=== PATIENT | female | born 1950 | race Caucasian/White ===

== ENCOUNTER 2018-06-27 08:33 | Inpatient (IN) | payer MEDICARE ==
[~2018-06-27] VITALS: Ht 170.2 cm; Wt 94.5 kg
[2018-06-27] VITALS (37 sets, daily range): BP systolic 86–130; BP diastolic 54–106
--- NOTE | 2018-06-27 08:35 | NUR ---
PT CLIFF Stephenson from [facility] for AMS and low BP, PT IS AAOX0 BUT WITHDRAWS TO PAIN, NOTEP LOW BP OF 71/51, HOOKED TO PESTICIDE APPLICATOR, KEPT RESTED AND COMFORTABLE, WILL CONTINUE TO MONITOR.
--- NOTE | 2018-06-27 08:45 | NUR ---
IV LINE ESTABLISHED, LABS DRAWNED AND SENT TO LAB.
--- NOTE | 2018-06-27 08:50 | NUR ---
GOLD LEAF LAYER AT BEDSIDE FOR XRAY.
[2018-06-27 08:53] LABS: BASOPHILS # (AUTO) 0.1 /CMM (0.0-0.2); BASOPHILS % (AUTO) 0.4 % (0.0-2.0); HEMATOCRIT 32 % (33-45); HEMOGLOBIN 10.5 g/dL (11.5-14.8); LYMPHOCYTES # (AUTO) 0.5 /CMM (0.8-4.8); LYMPHOCYTES % (AUTO) 2.4 % (20.0-44.0); MEAN CORPUSCULAR HGB CONC 33 g/dl (31.0-36.0); MEAN CORPUSCULAR VOLUME 95 fL (82-100); MONOCYTES # (AUTO) 0.8 /CMM (0.1-1.30); MONOCYTES % (AUTO) 4.3 % (2.0-12.0); NEUTROPHILS # (AUTO) 17.5 /CMM (1.8-8.9); NEUTROPHILS % (AUTO) 92.9 % (43.0-81.0); PLATELET COUNT (AUTO) 284 /CMM (150-450); RED BLOOD CELL COUNT(AUTO) 3.32 MIL/uL (4.0-5.2); WHITE BLOOD COUNT (AUTO) 18.8 K/uL (4.3-11.0)
--- NOTE | 2018-06-27 08:55 | NUR ---
URINE SPECIMEN COLLECTED VIA STRAIGHT CATH AND SENT TO LAB.
[2018-06-27 09:00] LABS: APPEARANCE,URINE Turbid (CLEAR); BILIRUBIN,URINE Negative (NEGATIVE); BLOOD, URINE Moderate Ery/uL (NEGATIVE); COLOR,URINE Yellow (YELLOW); KETONES,URINE Negative (NEGATIVE); LEUKOCYTE ESTERASE ,URINE Large (NEGATIVE); NITRITE, URINE Negative (NEGATIVE); PH,URINE 8.5 (5.0-8.0); PROTEIN,URINE >=300 mg/dl (NEGATIVE); UGLUCOSE Negative (NEGATIVE); UROBILINOGEN,URINE 0.2 EU/dL (0.2)
[2018-06-27] MEDS ORDERED: IV NS 0.9% 1,000 ML BAG IV ONE ×2 (09:00→12:00)
--- NOTE | 2018-06-27 09:00 | NUR ---
30CC PER KG IV NS ONGOING VERBAL ORDERED BY DR. ORTIZ.
[2018-06-27 09:01] LABS: CALCIUM, SERUM 8.8 mg/dL (8.5-10.1); CARBON DIOXIDE 23 mmol/L (21-32); CHLORIDE 101 mmol/L (98-107); CREATININE 2.9 mg/dL (0.6-1.3); GLUCOSE 158 mg/dL (74-106); POTASSIUM 4.2 mmol/L (3.5-5.1); SODIUM SERUM 130 mmol/L (136-145); UREA NITROGEN, BLOOD 48 mg/dL (7-18)
[2018-06-27] MEDS ORDERED: ESCI10TA PO (09:06)
[2018-06-27] MEDS ORDERED: DOCU-141 PO (09:06)
[2018-06-27] MEDS ORDERED: ACET-2605 PO (09:06)
[2018-06-27] MEDS ORDERED: INTE30SY IM (09:06)
[2018-06-27] MEDS ORDERED: ACET-868 PO (09:06)
[2018-06-27] MEDS ORDERED: [UNRECOGNIZED DRUG - CODE] IV (09:06)
[2018-06-27] MEDS ORDERED: LEVO250P3 IV (09:06)
[2018-06-27] MEDS ORDERED: BACL10TA PO (09:06)
[2018-06-27 09:07] LABS: ALANINE AMINOTRANSFERASE 12 U/L (12-78); ALBUMIN 1.8 g/dL (3.4-5.0); ALKALINE PHOSPHATASE 82 U/L (46-116); ASPARTATE AMINOTRANSFERASE 21 U/L (15-37); BILIRUBIN,DIRECT 0.1 mg/dL (0.0-0.2); BILIRUBIN,TOTAL 0.3 mg/dL (0.2-1.0); TOTAL PROTEIN, SERUM 6.3 g/dL (6.4-8.2)
[2018-06-27] MEDS ORDERED: BISA10SU8 RC (09:07)
[2018-06-27] MEDS ORDERED: SORB30SO2 PO (09:07)
[2018-06-27] MEDS ORDERED: MAGN400O6 PO (09:07)
[2018-06-27] MEDS ORDERED: CLOP75TA15 PO (09:07)
[2018-06-27] MEDS ORDERED: SENN-168 PO (09:07)
[2018-06-27] MEDS ORDERED: NORT10CA PO (09:07)
[2018-06-27] MEDS ORDERED: FAMO20TA8 PO (09:07)
[2018-06-27] MEDS ORDERED: AMIN30LI27 PO (09:07)
[2018-06-27] MEDS ORDERED: AMLO5TAB4 PO (09:07)
[2018-06-27] MEDS ORDERED: LISI40TA4 PO (09:07)
[2018-06-27] MEDS ORDERED: GABA-534 PO (09:07)
[2018-06-27] MEDS ORDERED: MAGN400T26 PO (09:07)
[2018-06-27] MEDS ORDERED: NA P133E RC (09:07)
[2018-06-27 09:09] LABS: BACTERIA,URINE Few /HPF (None Seen); SQUAMOUS EPITHELIAL CELL,UR Few /HPF (None Seen); WBC,URINE 20-50 /HPF (0-3)
[2018-06-27 09:10] LABS: URINE AMORPHOUS PHOSPHATES Moderate /HPF (None Seen)
--- NOTE | 2018-06-27 09:38 | NUR ---
DR. ELOISE YING ON-CALL. AWAITING FOR CALL BACK.
--- NOTE | 2018-06-27 09:55 | NUR ---
BED 117-1 SINDHU
[2018-06-27] MEDS ORDERED: VANCOMYCIN 1 GM in IV D5W 250 ML IV ONE (10:00)
[2018-06-27] MEDS ORDERED: CEFEPIME 1 GM VIAL IV ONE (10:00)
[2018-06-27] MEDS ORDERED: ACETAMINOPHEN 325 MG TABLET PO PRN (10:30)
[2018-06-27] MEDS ORDERED: DEXTROSE IV SCH (10:30)
[2018-06-27] MEDS ORDERED: NA PHOS,M-B/NA PHOS,DI-BA 1 EA ENEMA RC PRN (10:30)
[2018-06-27] MEDS ORDERED: MAG HYDROX/AL HYDROX/SIMETH 30 ML UDC PO PRN (10:30)
[2018-06-27] MEDS ORDERED: CEFEPIME 2 GM in IV D5W 100 ML IV ONE (10:30)
[2018-06-27] MEDS ORDERED: ONDANSETRON HCL/PF 4 MG/2 ML VIAL IVP PRN (10:30)
[2018-06-27] MEDS ORDERED: BISACODYL SUPP (10 MG) 10 MG/SUPP.RECT SUPP.RECT RC PRN (10:30)
[2018-06-27] MEDS ORDERED: [UNRECOGNIZED DRUG - OTHER] IV SCH (10:30)
[2018-06-27] MEDS ORDERED: MAGNESIUM HYDROXIDE 30 ML UDC PO PRN ×2 (10:30)
--- NOTE | 2018-06-27 10:40 | NUR ---
DR. NAVAS AT BEDSIDE FOR EVAL.
[2018-06-27] MEDS: LISINOPRIL (20MG) 20 MG TABLET PO SCH (11:00)
[2018-06-27] MEDS: SORBITOL SOLUTION 30 ML PO SCH (11:00)
--- NOTE | 2018-06-27 11:04 | NUR ---
REPEAT LACTIC ACID DRAWNED AND SENT TO LAB.
--- NOTE | 2018-06-27 11:12 | NUR ---
ICU BED 263 GIVEN
--- NOTE | 2018-06-27 11:13 | NUR ---
DENIS GAVE VERBAL CONSENT FOR PICC LINE INSERTION; JUDAH ZAVALA PICC LINE NURSE AWARE
[2018-06-27] MEDS ORDERED: FEE PK DOSING 1 MIN EA MC ONE (11:17)
--- NOTE | 2018-06-27 11:25 | NUR ---
REPORT GIVEN TO MACK PHAN FOR FREEMAN. WITH ONGOING LEVOPHED TITRATE TO EFFECT.
--- NOTE | 2018-06-27 12:00 | NUR ---
received pt from ER, sepsis s/t PNA and UTI, confused, aphasic, does not follows commands, ST, receiving levo at 7mcg, 2800cc NS given in ER, perineal and sacral redness, v/s stable, no pain, pt cleaned, changed and repositioned.
[2018-06-27] MEDS: NOREPINEPHRINE 8 MG in IV D5W 500 ML IV PRN (12:16)
[2018-06-27] MEDS: IV NS 0.9% 1,000 ML IV SCH ×2 (13:40→20:15)
[2018-06-27] MEDS: DOCUSATE SODIUM 100 MG CAPSULE PO SCH ×2 (13:42→17:27)
[2018-06-27 13:55] LABS: ALBUMIN 1.8 g/dL (3.4-5.0); BILIRUBIN,DIRECT 0.2 mg/dL (0.0-0.2); BILIRUBIN,TOTAL 0.3 mg/dL (0.2-1.0); TOTAL PROTEIN, SERUM 6.2 g/dL (6.4-8.2)
[2018-06-27] MEDS: HYDROCODONE/APAP 5/325MG 1 EACH TABLET PO PRN (14:54)
--- NOTE | 2018-06-27 16:34 | NUR ---
pt is resting in the bed, alert, confused, ST, receiving levo at 8mcg, able to swallow crushed meds with apple sauce, f/c OK output, one BM, family at the bedside, v/s stable, no pain, pt cleaned, changed and repositioned q2hrs.
[2018-06-27] MEDS: FAMOTIDINE (20 MG) 20 MG TABLET PO SCH (17:27)
[2018-06-27] MEDS: PROSOURCE / PROSTAT (PYXIS) 30 ML UDC PO SCH (17:27)
--- NOTE | 2018-06-27 19:22 | NUR ---
COMPUTER SUPPORT SPECIALIST, INITIAL ASSESSMENT.RECEIVED THE PT REST ON THE BED, PT IS SLEEPING. VERY LETHARGIC, PT IS ROOM AIR. SAT 94%. NO ACUTE DISTRESS NOTED. SUPERVISOR OPERATIONS SHOWING NSR, AT THIS TIME. IV LT UPPER ARM PICC LINE IVF NS 100ML/H,LEVOPHED 9MCG/MIN. HOB ELEVATED. FC PATENT. URINE DRAINING. WILL CONTINUE TO MONITOR VITALS.
[2018-06-27] MEDS: NORTRIPTYLINE HCL 10 MG CAPSULE PO SCH (21:24)
[2018-06-27] MEDS: SENNOSIDES 8.6 MG TABLET PO SCH (21:24)
[2018-06-27] MEDS: BACLOFEN (10 MG) 10 MG TABLET PO SCH (21:24)
[2018-06-27] MEDS: GABAPENTIN 300 MG CAPSULE PO SCH (21:25)
[2018-06-27] MEDS: ZOLPIDEM TARTRATE 5 MG TABLET PO PRN (23:21)
[2018-06-28] VITALS (71 sets, daily range): BP systolic 72–136; BP diastolic 39–96
[2018-06-28] MEDS ORDERED: NOREPINEPHRINE 4 MG/4 ML AMPUL IV ONE (01:55)
[2018-06-28] MEDS: NOREPINEPHRINE 8 MG in IV D5W 500 ML IV PRN ×2 (02:00→02:14)
--- NOTE | 2018-06-28 03:25 | NUR ---
REFRACTORY REPAIRER, AM CARE, ORAL CARE, BED BATH GIVEN. LINEN CHANGED. REMAINING SAME IVF NS 1OOML/H, IVF D5 100ML/H. IV LEVO 10ML/H, FC PATENT, URINE DRAINING. HOB ELEVATED, TURN AND REPOSITION Q2H. WILL CONTINUE TO MONITOR VITALS
[2018-06-28 04:39] LABS: BASOPHILS % (AUTO) 0.1 % (0.0-2.0); HEMATOCRIT 29 % (33-45); HEMOGLOBIN 9.9 g/dL (11.5-14.8); LYMPHOCYTES # (AUTO) 0.4 /CMM (0.8-4.8); LYMPHOCYTES % (AUTO) 2.3 % (20.0-44.0); MEAN CORPUSCULAR HGB CONC 34 g/dl (31.0-36.0); MEAN CORPUSCULAR VOLUME 94 fL (82-100); MONOCYTES # (AUTO) 0.7 /CMM (0.1-1.30); MONOCYTES % (AUTO) 4.4 % (2.0-12.0); NEUTROPHILS # (AUTO) 15.1 /CMM (1.8-8.9); NEUTROPHILS % (AUTO) 93.2 % (43.0-81.0); PLATELET COUNT (AUTO) 279 /CMM (150-450); RED BLOOD CELL COUNT(AUTO) 3.12 MIL/uL (4.0-5.2); WHITE BLOOD COUNT (AUTO) 16.2 K/uL (4.3-11.0)
[2018-06-28 04:51] LABS: CALCIUM, SERUM 8.6 mg/dL (8.5-10.1); CARBON DIOXIDE 19 mmol/L (21-32); CHLORIDE 108 mmol/L (98-107); CREATININE 1.8 mg/dL (0.6-1.3); GLUCOSE 157 mg/dL (74-106); POTASSIUM 3.6 mmol/L (3.5-5.1); SODIUM SERUM 137 mmol/L (136-145); UREA NITROGEN, BLOOD 40 mg/dL (7-18)
[2018-06-28] MEDS: IV NS 0.9% 1,000 ML IV SCH ×2 (05:11→16:04)
[2018-06-28 05:47] LABS: CHOLESTEROL 80 mg/dL (<200); LDL 41 mg/dL (0-99); TRIGLYCERIDES 83 mg/dL (30-150)
[2018-06-28 05:49] LABS: HDL CHOLESTEROL < 10 mg/dL (40-60)
--- NOTE | 2018-06-28 08:46 | NUR ---
received pt from shift production associate, alert, confused, follows simple commands at times, SR, receiving levo at 4mcg, f/c good output, v/s stable, no pain, pt turned and repositioned.
[2018-06-28] MEDS: AMLODIPINE BESYLATE 5 MG TABLET PO SCH (09:00)
[2018-06-28] MEDS: LISINOPRIL (20MG) 20 MG TABLET PO SCH (09:00)
[2018-06-28] MEDS: ESCITALOPRAM OXALATE (10 MG) 10 MG TABLET PO SCH (09:06)
[2018-06-28] MEDS: DOCUSATE SODIUM 100 MG CAPSULE PO SCH ×3 (09:06→16:06)
[2018-06-28] MEDS: FAMOTIDINE (20 MG) 20 MG TABLET PO SCH ×2 (09:06→16:06)
[2018-06-28] MEDS: CLOPIDOGREL BISULFATE 75 MG TABLET PO SCH (09:06)
[2018-06-28] MEDS: GABAPENTIN 300 MG CAPSULE PO SCH ×2 (09:06→21:39)
[2018-06-28] MEDS: SENNOSIDES 8.6 MG TABLET PO SCH ×2 (09:06→21:39)
[2018-06-28] MEDS: MAGNESIUM OXIDE 400 MG TABLET PO SCH (09:08)
[2018-06-28] MEDS: PROSOURCE / PROSTAT (PYXIS) 30 ML UDC PO SCH ×2 (09:10→16:06)
[2018-06-28] MEDS: HYDROCODONE/APAP 5/325MG 1 EACH TABLET PO PRN (09:37)
[2018-06-28] MEDS ORDERED: CEFEPIME 2 GM in IV D5W 100 ML IV SCH (10:00)
[2018-06-28] MEDS ORDERED: VANCOMYCIN 0.75 GM in IV D5W 250 ML IV SCH (10:00)
[2018-06-28] MEDS ORDERED: CEFEPIME 1 GM in IV NS 0.9% 50 ML IV SCH (10:00)
[2018-06-28 11:42] LABS: ABG BASE EXCESS -5.6 mmol/L; ABG OXYGEN SATURATION 97.2 % (92.0-98.5); ABG PCO2 30.9 mmHg (35.0-45.0); ABG PH 7.394 (7.350-7.450); ABG PO2 97.7 mmHg (75.0-100.0); AaDO2 58.3 mmHg; MetHb 0.7 % (0.0-1.5); O2Hb 96.5 % (94.0-97.0); SITE, ABG Right Radial; VENT MODE, BG nasal cannula
[2018-06-28] MEDS ORDERED: NOREPINEPHRINE 16 MG in IV D5W 500 ML IV PRN (12:30)
--- NOTE | 2018-06-28 16:42 | NUR ---
pt is resting in the bed, alert, confused, SR, receiving levo at 6mcg, v/s stable, no pain, pt cleaned, changed and repositioned q2hrs.
--- NOTE | 2018-06-28 19:27 | NUR ---
LANDFILL GAS COLLECTION SYSTEM OPERATOR. INITIAL ASSESSMENT. RECEIVED THE PT REST ON THE BED, AWAKE. ALERT. CONFUSED. OXYGEN 2L VIA NASAL CANNULA. SAT 99%. NO ACUTE DISTRESS NOTED. GEOSCIENTIST SHOWING NSR. IV LT UPPER ARM PICC LINE IVF NS 100ML/H, LEVOPHED 4MCG/MIN. FC PATENT. URINE DRAINING. HOB ELEVATED. WILL CONTINUE TO MONITOR VITALS.
[2018-06-28] MEDS: BACLOFEN (10 MG) 10 MG TABLET PO SCH (21:39)
[2018-06-28] MEDS: NORTRIPTYLINE HCL 10 MG CAPSULE PO SCH (21:40)
[2018-06-28] MEDS: ZOLPIDEM TARTRATE 5 MG TABLET PO PRN (23:44)
[2018-06-29] VITALS (65 sets, daily range): BP systolic 75–133; BP diastolic 47–93
[2018-06-29] MEDS: IV NS 0.9% 1,000 ML IV SCH ×3 (02:33→23:22)
--- NOTE | 2018-06-29 03:12 | NUR ---
SUPERVISOR COOPERAGE SHOP AM CARE. ORAL CARE, BED BATH GIVEN. LINEN CHANGED. REMAINING SAME IVF NS 100ML/H, LEVOPHED 4MCG/MIN, HOB ELEVATED. AFEBRILE. FC PATENT. URINE DRAINING, TURN AND REPOSITION Q2H. WILL CONTINUE TO MONITOR VITALS.
[2018-06-29 04:47] LABS: BASOPHILS % (AUTO) 0.3 % (0.0-2.0); EOSINOPHILS % (AUTO) 1.2 % (0.0-6.0); HEMATOCRIT 30 % (33-45); HEMOGLOBIN 10.2 g/dL (11.5-14.8); LYMPHOCYTES # (AUTO) 0.6 /CMM (0.8-4.8); LYMPHOCYTES % (AUTO) 7.1 % (20.0-44.0); MEAN CORPUSCULAR HGB CONC 34 g/dl (31.0-36.0); MEAN CORPUSCULAR VOLUME 93 fL (82-100); MONOCYTES # (AUTO) 0.5 /CMM (0.1-1.30); MONOCYTES % (AUTO) 5.5 % (2.0-12.0); NEUTROPHILS # (AUTO) 7.6 /CMM (1.8-8.9); NEUTROPHILS % (AUTO) 85.9 % (43.0-81.0); PLATELET COUNT (AUTO) 226 /CMM (150-450); RED BLOOD CELL COUNT(AUTO) 3.25 MIL/uL (4.0-5.2); WHITE BLOOD COUNT (AUTO) 8.8 K/uL (4.3-11.0)
[2018-06-29 04:57] LABS: CALCIUM, SERUM 8.9 mg/dL (8.5-10.1); CREATININE 1.4 mg/dL (0.6-1.3); POTASSIUM 3.5 mmol/L (3.5-5.1)
[2018-06-29] MEDS ORDERED: VANCOMYCIN 1 GM in IV D5W 250 ML IV SCH (06:00)
--- NOTE | 2018-06-29 08:30 | NUR ---
RN NOTES RECEIVED PT ON BED, AWAKE. ALERT. NONVERBAL , RESPIRATION EVEN AND UNLABORED, ON RA, NO SOB NOTED, ON TELE SR HR IN 80'S , NO ACUTE DISTRESS NOTED. LEFT UPPER ARM PICC LINE SITE CLEAN, DRY AND INTACT, NS AT 100CC/HR RUNNING , LEVO RESTATED AT 2MCG/ MIN , BP=75/55 HR 84, BARBOSA DRAINING TO GRAVITY WITH YELLOW URINE, HOB ELEVATED, SR UP x3, CALL LIGHT WITHIN EASY REACH, BED LOCKED AND IN LOWEST POSITION , CONTINUE TO MONITOR
[2018-06-29] MEDS: LISINOPRIL (20MG) 20 MG TABLET PO SCH (09:00)
[2018-06-29] MEDS: AMLODIPINE BESYLATE 5 MG TABLET PO SCH (09:00)
[2018-06-29] MEDS: CLOPIDOGREL BISULFATE 75 MG TABLET PO SCH (09:30)
[2018-06-29] MEDS: ESCITALOPRAM OXALATE (10 MG) 10 MG TABLET PO SCH (09:30)
[2018-06-29] MEDS: GABAPENTIN 300 MG CAPSULE PO SCH ×2 (09:30→21:19)
[2018-06-29] MEDS: FAMOTIDINE (20 MG) 20 MG TABLET PO SCH ×2 (09:32→17:16)
[2018-06-29] MEDS: SENNOSIDES 8.6 MG TABLET PO SCH ×2 (09:32→21:19)
[2018-06-29] MEDS: MAGNESIUM OXIDE 400 MG TABLET PO SCH (09:32)
[2018-06-29] MEDS: DOCUSATE SODIUM 100 MG CAPSULE PO SCH ×3 (09:33→17:16)
[2018-06-29] MEDS: PROSOURCE / PROSTAT (PYXIS) 30 ML UDC PO SCH ×2 (09:36→17:17)
--- NOTE | 2018-06-29 12:45 | NUR ---
RN NOTES 11 AM MERREM IV IS NOT AVAILABLE FROM PHARMACY YET, SPOKEN TO YAYA x2
[2018-06-29] MEDS: MEROPENEM 1 G in IV NS 0.9% 100 ML IV SCH ×2 (12:56→21:19)
[2018-06-29] MEDS: Z GUARD REMEDY 2 OZ OINT TP PRN (15:32)
--- NOTE | 2018-06-29 16:00 | NUR ---
RN NOTES PT OFF LEVO AT THIS TIME, VSS STABLE, CONTINUE TO MONITOR.
--- NOTE | 2018-06-29 18:42 | NUR ---
RN NOTES VSS STABLE, NS [id number] RUNNING VIA L UPPER ARM PICC LINE ,SITE CLEAN, DRY AND INTACT , SR UP X3 CALL LIGHT WITHIN EASY REACH, WILL ENDOSE TO [facility] SHIFT NURSE FOR CONTINUITY OF CARE .
--- NOTE | 2018-06-29 19:30 | NUR ---
RN NOTES, RECEIVED PATIENT ON BED, AWAKE A/O TO NAME, NONVERBAL , BREATHING EVEN AND UNLABORED, NO S/S OF SOB/ACUTE DISTRESS NOTED AT THIS TIME, ON RA WITH OPTIMAL O2 SAT LEVEL AT THIS TIME, LEFT UPPER ARM PICC LINE SITE PATENT AND INTACT, NS 0.9% INFUSING WELL AND TOLERATED WELL, OFF LEVO SINCE 1600, WITH BP WNL 108/78, HR 97 AT THIS TIME, BARBOSA CATHETER DRAINING WELL TO GRAVITY WITH YELLOW URINE NOTED , HOB ELEVATED, SR UP x3, CALL LIGHT WITHIN EASY REACH, BED LOCKED AND IN LOWEST POSITION , WILL CONTINUE TO MONITOR CLOSELY.
[2018-06-29] MEDS: BACLOFEN (10 MG) 10 MG TABLET PO SCH (21:19)
[2018-06-29] MEDS: NORTRIPTYLINE HCL 10 MG CAPSULE PO SCH (21:19)
[2018-06-29] MEDS: ZOLPIDEM TARTRATE 5 MG TABLET PO PRN (21:39)
[2018-06-30] VITALS (27 sets, daily range): BP systolic 99–138; BP diastolic 62–90
[2018-06-30 05:00] LABS: BASOPHILS % (AUTO) 0.4 % (0.0-2.0); HEMATOCRIT 28 % (33-45); HEMOGLOBIN 9.7 g/dL (11.5-14.8); LYMPHOCYTES # (AUTO) 0.8 /CMM (0.8-4.8); LYMPHOCYTES % (AUTO) 10.1 % (20.0-44.0); MEAN CORPUSCULAR HGB CONC 34 g/dl (31.0-36.0); MEAN CORPUSCULAR VOLUME 93 fL (82-100); MONOCYTES # (AUTO) 0.8 /CMM (0.1-1.30); MONOCYTES % (AUTO) 9.6 % (2.0-12.0); NEUTROPHILS # (AUTO) 6.1 /CMM (1.8-8.9); NEUTROPHILS % (AUTO) 77.9 % (43.0-81.0); PLATELET COUNT (AUTO) 194 /CMM (150-450); RED BLOOD CELL COUNT(AUTO) 3.04 MIL/uL (4.0-5.2); WHITE BLOOD COUNT (AUTO) 7.8 K/uL (4.3-11.0)
[2018-06-30 05:07] LABS: CALCIUM, SERUM 8.4 mg/dL (8.5-10.1); CREATININE 1.2 mg/dL (0.6-1.3); POTASSIUM 3.3 mmol/L (3.5-5.1)
--- NOTE | 2018-06-30 06:55 | NUR ---
RN NOTES, PATIENT IN BED, SLEEPING AT THIS TIME , BREATHING EVEN AND UNLABORED, NO S/S OF SOB/ACUTE DISTRESS NOTED AT THIS TIME, ON RA WITH OPTIMAL O2 SAT LEVEL AT THIS TIME >97%, LEFT UPPER ARM PICC LINE SITE PATENT AND INTACT, NS 0.9% INFUSING WELL AND TOLERATED WELL, WITH OPTIMAL BP THROUGHOUT THE NIGHT, BARBOSA CATHETER DRAINING WELL TO GRAVITY WITH YELLOW URINE NOTED, HOB ELEVATED, SR UP x3, CALL LIGHT W/I REACH, BED LOCKED AND IN LOWEST POSITION , WILL ENDORSE CONTINUITY OF CARE TO ONCOMING NURSE.
--- NOTE | 2018-06-30 07:10 | NUR ---
RN NOTES, RECEIVED PATIENT ON BED, AWAKE ALERT, NONVERBAL , ON RA RESPIRATION EVEN AND UNLABORED, NO DISTRESS NOTED, LEFT UPPER ARM PICC LINE SITE CLEAN, DRY AND INTACT, WITH NS AT 100CC/HR RUNNING , VSS STABLE , BARBOSA CATHETER DRAINING WELL TO GRAVITY WITH YELLOW URINE , HOB ELEVATED, SR UP x3, CALL LIGHT WITHIN EASY REACH, BED LOCKED AND IN LOWEST POSITION , CONTINUE TO MONITOR CLOSELY.
[2018-06-30] MEDS: ESCITALOPRAM OXALATE (10 MG) 10 MG TABLET PO SCH (08:28)
[2018-06-30] MEDS: MAGNESIUM OXIDE 400 MG TABLET PO SCH (08:28)
[2018-06-30] MEDS: SENNOSIDES 8.6 MG TABLET PO SCH ×2 (08:28→21:00)
[2018-06-30] MEDS: MEROPENEM 1 G in IV NS 0.9% 100 ML IV SCH ×2 (08:28→21:29)
[2018-06-30] MEDS: DOCUSATE SODIUM 100 MG CAPSULE PO SCH ×3 (08:28→16:23)
[2018-06-30] MEDS: CLOPIDOGREL BISULFATE 75 MG TABLET PO SCH (08:28)
[2018-06-30] MEDS: FAMOTIDINE (20 MG) 20 MG TABLET PO SCH ×2 (08:28→16:23)
[2018-06-30] MEDS: GABAPENTIN 300 MG CAPSULE PO SCH ×2 (08:29→21:29)
[2018-06-30] MEDS: PROSOURCE / PROSTAT (PYXIS) 30 ML UDC PO SCH ×2 (08:30→16:23)
[2018-06-30] MEDS: LISINOPRIL (20MG) 20 MG TABLET PO SCH (08:31)
[2018-06-30] MEDS: AMLODIPINE BESYLATE 5 MG TABLET PO SCH (08:31)
[2018-06-30] MEDS: IV NS 0.9% 1,000 ML IV SCH ×2 (08:32→19:34)
[2018-06-30] MEDS ORDERED: POTASSIUM CHLORIDE 20 MEQ POWDER PACKET PO SCH (10:00)
[2018-06-30] MEDS: SORBITOL SOLUTION 30 ML PO SCH (10:20)
--- NOTE | 2018-06-30 10:30 | NUR ---
RN NOTES REPORT GIVEN TO JORGE GIRON FOR CONTINUITY OF CARE , PT TRANSFERRED TO ROOM 113-1 VIA ACLS PROTOCOL IN STABLE CONDITION .
--- NOTE | 2018-06-30 10:45 | NUR ---
PHYSICAL CHEMIST NOTES PT RECEIVED ON SINDHU FLOOR. VS WNL. NO S/SX OF DISTRESS NOTED. ON ROOM AIR. ON TELE SR. IV INFLUIDS INFUSING VIA ANTHONY PICC LINE. PT NOTED TO HAVE RIGHT SIDE WEAKNESS. F/C IN PLACE WITH 450CC IN BAG. ALERT AND ORIENTED; ABLE TO COMMUNICATE AT TIMES. ISOLATION PRECAUTIONS MAINTAINED. BED IN LOCKED/LOWEST POSITION. CALL LIGHT IN REACH. ORIENTED TO ROOM AND FLOOR.
--- NOTE | 2018-06-30 19:07 | NUR ---
CLINICAL DATA MANAGEMENT DIRECTOR END OF SHIFT NOTES PT RESTING IN BED, NO S/SX OF DISTRESS NOTED. BED IN LOCKED/LOWEST POSITION. CALL LIGHT IN REACH. WILL CONT TO MONITOR.
--- NOTE | 2018-06-30 19:50 | NUR ---
ENVIRONMENTAL ENGINEER NOTE: PATIENT RESTING IN BED, NO ACUTE DISTRESS NOTED. BREATHING EVEN AND UNLABORED, NO SOB NOTED. BARBOSA CATHETER IN PLACE, DRAINING CLEAR YELLOW URINE. PICC LINE TO ANTHONY IN PLACE. ISOLATION PRECAUTIONS OBSERVED. BED LOCKED AND IN LOWEST POSITION, CALL LIGHT IN REACH. WILL CONTINUE TO MONITOR.
[2018-06-30] MEDS: BACLOFEN (10 MG) 10 MG TABLET PO SCH (21:29)
[2018-06-30] MEDS: NORTRIPTYLINE HCL 10 MG CAPSULE PO SCH (21:29)
--- NOTE | 2018-06-30 22:45 | NUR ---
BINDING END STITCHER NOTE: PATIENT SENOKOT MEDICATION HELD, PATIENT WITH EPISODES OF LOOSE BM. WILL CONTINUE TO MONITOR.
[2018-07-01 00:15] VITALS: BP 147/81
[2018-07-01 04:30] VITALS: BP 140/80
[2018-07-01] MEDS: IV NS 0.9% 1,000 ML IV SCH (04:48)
--- NOTE | 2018-07-01 06:30 | NUR ---
PICKLE MAKER NOTE: PATIENT RESTING IN BED, NO ACUTE DISTRESS NOTED. BREATHING EVEN AND UNLABORED, NO SOB NOTED. BARBOSA CATHETER IN PLACE. PICC LINE TO ANTHONY IN PLACE. ISOLATION PRECAUTIONS OBSERVED. BED LOCKED AND IN LOWEST POSITION, CALL LIGHT IN REACH. WILL ENDORSE TO DAY NURSE TO CONTINUE WITH PLAN OF CARE.
[2018-07-01 06:48] LABS: BASOPHILS % (AUTO) 0.4 % (0.0-2.0); EOSINOPHILS % (AUTO) 2.9 % (0.0-6.0); HEMATOCRIT 28 % (33-45); HEMOGLOBIN 9.6 g/dL (11.5-14.8); LYMPHOCYTES % (AUTO) 11.5 % (20.0-44.0); MEAN CORPUSCULAR HGB CONC 34 g/dl (31.0-36.0); MEAN CORPUSCULAR VOLUME 92 fL (82-100); MONOCYTES % (AUTO) 10.7 % (2.0-12.0); NEUTROPHILS # (AUTO) 6.7 /CMM (1.8-8.9); NEUTROPHILS % (AUTO) 74.5 % (43.0-81.0); PLATELET COUNT (AUTO) 212 /CMM (150-450); RED BLOOD CELL COUNT(AUTO) 3.04 MIL/uL (4.0-5.2)
--- NOTE | 2018-07-01 07:00 | NUR ---
PEDIATRIC REGISTERED NURSE OPENING NOTES RECEIVED PT IN BED ASLEEP BUT AROUSABLE. NO S/SX OF DISTRESS NOTED. ON TELE SR. PT ON RA WITH EVEN NON LABORED BREATHING. O2 SAT WNL. F/C IN PLACE DRAINING CLOUDY YELLOW URINE. ANTHONY PICC LINE IN PLACE RUNNING NS AT 100 ML/HR. BED IN LOCKED/LOWEST POSITION. CALL LIGHT IN REACH. WILL CONT TO MONITOR.
[2018-07-01 07:18] LABS: BILIRUBIN,TOTAL 0.3 mg/dL (0.2-1.0); MAGNESIUM 1.5 mg/dL (1.8-2.4); PHOSPHORUS 1.9 mg/dL (2.5-4.9); POTASSIUM 3.1 mmol/L (3.5-5.1); TOTAL PROTEIN, SERUM 5.5 g/dL (6.4-8.2)
[2018-07-01 07:31] LABS: CALCIUM, SERUM 8.5 mg/dL (8.5-10.1)
[2018-07-01 08:00] VITALS: BP 130/90
[2018-07-01 08:01] LABS: ALBUMIN 1.4 g/dL (3.4-5.0)
[2018-07-01] MEDS: MEROPENEM 1 G in IV NS 0.9% 100 ML IV SCH ×2 (08:48→21:30)
[2018-07-01] MEDS: FAMOTIDINE (20 MG) 20 MG TABLET PO SCH ×2 (08:49→16:27)
[2018-07-01] MEDS: Z GUARD REMEDY 2 OZ OINT TP PRN (08:49)
[2018-07-01] MEDS: CLOPIDOGREL BISULFATE 75 MG TABLET PO SCH (08:49)
[2018-07-01] MEDS: GABAPENTIN 300 MG CAPSULE PO SCH ×2 (08:50→21:30)
[2018-07-01] MEDS: LISINOPRIL (20MG) 20 MG TABLET PO SCH (08:50)
[2018-07-01] MEDS: MAGNESIUM OXIDE 400 MG TABLET PO SCH (08:50)
[2018-07-01] MEDS: DOCUSATE SODIUM 100 MG CAPSULE PO SCH ×3 (08:50→16:27)
[2018-07-01] MEDS: ESCITALOPRAM OXALATE (10 MG) 10 MG TABLET PO SCH (08:50)
[2018-07-01] MEDS: SENNOSIDES 8.6 MG TABLET PO SCH ×2 (08:51→21:30)
[2018-07-01] MEDS: AMLODIPINE BESYLATE 5 MG TABLET PO SCH (08:51)
[2018-07-01] MEDS: PROSOURCE / PROSTAT (PYXIS) 30 ML UDC PO SCH ×2 (09:02→16:33)
[2018-07-01] MEDS: Magnesium 1GM/D5W 100ML PREMIX 100 ML IV SCH ×2 (10:33→12:43)
[2018-07-01] MEDS: POTASSIUM CHLORIDE 20 MEQ TAB.PRT.SR PO SCH ×2 (10:33→11:50)
[2018-07-01] MEDS ORDERED: NEUTRA PHOS 1 POWD.PACKET PO ONE (11:00)
[2018-07-01 12:00] VITALS: BP 130/90
--- NOTE | 2018-07-01 12:30 | NUR ---
MS RN NOTES RECEIVED PT IN BED, AWAKE AND DRINKING COFFEE. TOLERATING RA, WITH NO ACUTE RESPIRATORY DISTRESS. PT MADE AWARE OF NURSE ASSIGNMENT WAS CHANGED. RN INTRODUCED TO PT; PT RESPONDED THROUGH NODDING AND SMILING. IVF NS AT 100ML/HR TO ANTHONY PICC LINE, INFUSING WELL. PT KEPT COMFORTABLE. PT'S BED KEPT IN LOWEST, LOCKED POSITION WITH SR X2. CALL LIGHT WITHIN REACH. WILL CONTINUE TO MONITOR.
--- NOTE | 2018-07-01 14:33 | NUR ---
MS RN NOTES SEEN BY DR ESCALONA. MADE AWARE OF POTASSIUM LEVEL OF 3.1 AND ALBUMIN OF 1.4. MD WILL PUT IN ORDERS SHE STATED.
[2018-07-01 16:00] VITALS: BP 125/75
--- NOTE | 2018-07-01 19:15 | NUR ---
MS RN CLOSING NOTES PT REMAINS RESTING IN BED, INTERMITTENTLY DOZING OFF. TOLERATING RA, WITH NO ACUTE RESPIRATORY DISTRESS. NO SIGNS OF ANY PAIN NOTED. PIV TO ANTHONY PICC LINE 3 LUMENS, FLUSHED WITH NS INTACT AND OPERATIONAL. PT KEPT COMFORTABLE. PT'S BED KEPT IN LOWEST, LOCKED POSITION WITH SR X2. CALL LIGHT WITHIN REACH. ENDORSED TO DITCH WORKER NURSE FOR FREEMAN.
--- NOTE | 2018-07-01 19:25 | NUR ---
MS/RN NOTES RECEIVED PT. LYING IN BED. PT. IS RESTING EASILY AROUSABLE TO NAME AND TOUCH. PT. IS ABLE TO MOUTH WORDS AND NOD. BREATHING EVEN AND UNLABORED ON ROOM AIR. NO SOB, RESPIRATORY DISTRESS OR COMPLAINTS OF PAIN NOTED AT THIS TIME. PT. WITH LEFT UPPER ARM PICC LINE 3 LUMENS PRESENT, PATENT AND INTACT. PT. WITH BARBOSA CATHETER PRESENT AND INTACT DRAINING YELLOW URINE. BED LOCKED AND IN LOWEST POSITION, SIDE RAILS UP X3, BED ALARM ON, CALL LIGHT WITHIN REACH, WILL CONTINUE TO MONITOR.
[2018-07-01] MEDS: NORTRIPTYLINE HCL 10 MG CAPSULE PO SCH (21:30)
[2018-07-01] MEDS: BACLOFEN (10 MG) 10 MG TABLET PO SCH (21:30)
--- NOTE | 2018-07-02 06:15 | NUR ---
MS/RN NOTES PT. IS LYING IN BED RESTING. PT. IS RESTING EASILY AROUSABLE TO NAME AND TOUCH. PT. IS ABLE TO MOUTH WORDS AND NOD. BREATHING EVEN AND UNLABORED ON ROOM AIR. NO SOB, RESPIRATORY DISTRESS OR COMPLAINTS OF PAIN NOTED AT THIS TIME AND THROUGHOUT SHIFT. PT. WITH LEFT UPPER ARM PICC LINE 3 LUMENS PRESENT, PATENT AND INTACT. PT. WITH BARBOSA CATHETER PRESENT AND INTACT DRAINING YELLOW URINE. ALL PT. NEEDS MET. PT. OFFLOADED, TURNED AND REPOSITIONED Q2H AND NEEDED. BED LOCKED AND IN LOWEST POSITION, SIDE RAILS UP X3, BED ALARM ON, CALL LIGHT WITHIN REACH, WILL ENDORSE TO DAYSHIFT NURSE FOR CONTINUITY OF CARE.
[2018-07-02 06:51] LABS: CALCIUM, SERUM 8.8 mg/dL (8.5-10.1); CREATININE 0.8 mg/dL (0.6-1.3); MAGNESIUM 1.9 mg/dL (1.8-2.4); PHOSPHORUS 2.4 mg/dL (2.5-4.9); POTASSIUM 3.4 mmol/L (3.5-5.1)
[2018-07-02 07:04] LABS: BASOPHILS % (AUTO) 0.4 % (0.0-2.0); EOSINOPHILS % (AUTO) 4.1 % (0.0-6.0); HEMATOCRIT 27 % (33-45); HEMOGLOBIN 9.4 g/dL (11.5-14.8); LYMPHOCYTES # (AUTO) 1.3 /CMM (0.8-4.8); LYMPHOCYTES % (AUTO) 15.6 % (20.0-44.0); MEAN CORPUSCULAR HGB CONC 35 g/dl (31.0-36.0); MEAN CORPUSCULAR VOLUME 92 fL (82-100); MONOCYTES # (AUTO) 0.8 /CMM (0.1-1.30); MONOCYTES % (AUTO) 9.2 % (2.0-12.0); NEUTROPHILS # (AUTO) 5.8 /CMM (1.8-8.9); NEUTROPHILS % (AUTO) 70.7 % (43.0-81.0); PLATELET COUNT (AUTO) 261 /CMM (150-450); RED BLOOD CELL COUNT(AUTO) 2.93 MIL/uL (4.0-5.2); WHITE BLOOD COUNT (AUTO) 8.2 K/uL (4.3-11.0)
--- NOTE | 2018-07-02 07:25 | NUR ---
RN OPENING NOTES RECEIVED REPORT FROM ANSWERER RN.PT. IS LYING IN BED RESTING. PT. IS RESTING EASILY AROUSABLE TO NAME AND TOUCH. PT. IS ABLE TO MOUTH WORDS AND NOD. BREATHING EVEN AND UNLABORED ON ROOM AIR. NO SOB, RESPIRATORY DISTRESS OR COMPLAINTS OF PAIN NOTED AT THIS TIME AND THROUGHOUT SHIFT. PT. WITH LEFT UPPER ARM PICC LINE 3 LUMENS PRESENT, PATENT AND INTACT. PT. WITH BARBOSA CATHETER PRESENT AND INTACT DRAINING YELLOW URINE. ALL PT. NEEDS MET. PT. OFFLOADED, TURNED AND REPOSITIONED Q2H AND NEEDED. BED LOCKED AND IN LOWEST POSITION, SIDE RAILS UP X3, BED ALARM ON, CALL LIGHT WITHIN REACH, WILL CONTINUE TO MONITOR PT.
[2018-07-02 08:00] VITALS: BP 136/87
[2018-07-02] MEDS: SENNOSIDES 8.6 MG TABLET PO SCH ×2 (08:48→21:13)
[2018-07-02] MEDS: MEROPENEM 1 G in IV NS 0.9% 100 ML IV SCH ×2 (08:48→20:06)
[2018-07-02] MEDS: GABAPENTIN 300 MG CAPSULE PO SCH ×2 (08:48→21:12)
[2018-07-02] MEDS: FAMOTIDINE (20 MG) 20 MG TABLET PO SCH ×2 (08:49→17:36)
[2018-07-02] MEDS: ESCITALOPRAM OXALATE (10 MG) 10 MG TABLET PO SCH (08:49)
[2018-07-02] MEDS: MAGNESIUM OXIDE 400 MG TABLET PO SCH (08:49)
[2018-07-02] MEDS: AMLODIPINE BESYLATE 5 MG TABLET PO SCH (08:49)
[2018-07-02] MEDS: CLOPIDOGREL BISULFATE 75 MG TABLET PO SCH (08:49)
[2018-07-02] MEDS: LISINOPRIL (20MG) 20 MG TABLET PO SCH (08:49)
[2018-07-02] MEDS: DOCUSATE SODIUM 100 MG CAPSULE PO SCH ×3 (08:49→17:36)
[2018-07-02] MEDS: PROSOURCE / PROSTAT (PYXIS) 30 ML UDC PO SCH ×2 (08:54→17:37)
[2018-07-02] MEDS: SORBITOL SOLUTION 30 ML PO SCH (11:57)
[2018-07-02] MEDS ORDERED: POTASSIUM CHLORIDE 20 MEQ TAB.PRT.SR PO SCH (12:00)
[2018-07-02] MEDS ORDERED: NEUTRA PHOS 1 POWD.PACKET NG ONE (13:00)
[2018-07-02 16:00] VITALS: BP 95/66
--- NOTE | 2018-07-02 19:36 | NUR ---
RN CLOSING NOTES GAVE REPORT TO DENTAL LABORATORY TECHNICIAN RN.PT. IS LYING IN BED RESTING. PT. IS RESTING EASILY AROUSABLE TO NAME AND TOUCH. PT. IS ABLE TO MOUTH WORDS AND NOD. BREATHING EVEN AND UNLABORED ON ROOM AIR. NO SOB, RESPIRATORY DISTRESS OR COMPLAINTS OF PAIN NOTED AT THIS TIME AND THROUGHOUT SHIFT. PT. WITH LEFT UPPER ARM PICC LINE 3 LUMENS PRESENT, PATENT AND INTACT. PT. WITH BARBOAS CATHETER PRESENT AND INTACT DRAINING YELLOW URINE. ALL PT. NEEDS MET. PT. OFFLOADED, TURNED AND REPOSITIONED Q2H AND NEEDED. BED LOCKED AND IN LOWEST POSITION, SIDE RAILS UP X3, BED ALARM ON, CALL LIGHT WITHIN REACH, WILL CONTINUE TO MONITOR PT. Addendum: 07/02/18 at 1938 by RAFIA HERRMANN RN WILL ENDORSE CONTINUITY OF CARE TO DENTAL LABORATORY TECHNICIAN RN.
--- NOTE | 2018-07-02 19:45 | NUR ---
MS PROJECT SCIENTIST INITIAL NOTES RECEIVED REPORT FROM AM NURSE AND SEEN PT IN BED AWAKE AND ALERT BUT GARBLE SPEAKING NOTED. SHE ALSO USED HER HAND AND NODDING HER HEAD SIGN TO COMMUNICATE TO HER. DENIES ANY PAIN OR ANY DISCOMFORT, SKIN WARM AND DRY TO TOUCH. BARBOSA DRAINING WELL WITH CLEAR YELLOW OUTPUT NOTED. KEPT HER WARM AND COMFORTABLE AT ALL TIMES. PLACE CALL LIGHT AT REACH. WILL CONTINUE MONITORING. BED ALARM SET FOR PT SAFETY.
[2018-07-02 19:53] VITALS: BP 105/67
[2018-07-02] MEDS: BACLOFEN (10 MG) 10 MG TABLET PO SCH (21:12)
[2018-07-02] MEDS: NORTRIPTYLINE HCL 10 MG CAPSULE PO SCH (21:12)
--- NOTE | 2018-07-02 21:30 | NUR ---
MS DAVID NOTES ROUTINE MEDS GIVEN CRUSHED WITH APPLE SAUCE, NO SIGNS OF ASPIRATION NOTED, PT TOLERATED PO WELL. SPONGE BATH RENDERED AND Z-GUARD APPLIED TO AFFECTED AREA. REPOSITION PT FOR COMFORT. KEPT HER WARM AND COMFORTABLE AT ALL TIMES. WILL CONTINUE MONITORING.
--- NOTE | 2018-07-03 | NUR ---
MS LOGISTICS SERVICE REPRESENTATIVE NOTES PT SLEEPING COMFORTABLY IN BED WITHOUT ANY ACUTE DISTRESS NOTED.
[2018-07-03 05:17] VITALS: BP 120/70
--- NOTE | 2018-07-03 07:08 | NUR ---
MS MEDICAL AND HEALTH SERVICES MANAGER CLOSING NOTES PT RESTING AT THIS TIME BUT AROUSES TO TOUCH. BREATHING EVEN AND UNLABORED, NOT IN ANY ACUTE DISTRESS NOTED. STABLE VITOR THE NIGHT AND SLEPT WELL , MORNING CARE DONE WELL SKIN TREATMENT. ALL DUE MEDS GIVEN AND ALL NEEDS MET. KEPT HER WARM AND COMFORTABLE AT ALL TIMES. BARBOSA DRAINING WELL AND PICCLINE PATENT AND INTACT. ON SEMI FOWLERS POSITIOMN WITH SIDE RAILS X2 UP AND BED IN LOW AND LOCK IN POSITION. ENDORSE TO AM NURSE FOR CONTINUITY OF CARE.
[2018-07-03 07:25] LABS: BASOPHILS % (AUTO) 0.4 % (0.0-2.0); EOSINOPHILS % (AUTO) 3.6 % (0.0-6.0); HEMATOCRIT 26 % (33-45); HEMOGLOBIN 9.1 g/dL (11.5-14.8); LYMPHOCYTES # (AUTO) 1.3 /CMM (0.8-4.8); LYMPHOCYTES % (AUTO) 17.6 % (20.0-44.0); MEAN CORPUSCULAR HGB CONC 34 g/dl (31.0-36.0); MEAN CORPUSCULAR VOLUME 92 fL (82-100); MONOCYTES # (AUTO) 0.5 /CMM (0.1-1.30); MONOCYTES % (AUTO) 7.1 % (2.0-12.0); NEUTROPHILS # (AUTO) 5.5 /CMM (1.8-8.9); NEUTROPHILS % (AUTO) 71.3 % (43.0-81.0); PLATELET COUNT (AUTO) 346 /CMM (150-450); RED BLOOD CELL COUNT(AUTO) 2.87 MIL/uL (4.0-5.2); WHITE BLOOD COUNT (AUTO) 7.7 K/uL (4.3-11.0)
--- NOTE | 2018-07-03 07:30 | NUR ---
RN OPENING NOTE PT WAS RECEIVED IN BED AT LOWEST AND LOCKED POSITION WITH SIDE RAILS UP X2, AWAKE AND ALERT DOES NOT TALK BUT NODS HEAD, BREATHING EVEN AND UNLABORED, NO S/S OF PAIN OR DISTRESS NOTED, PICC IS PATENT AND INTACT, BARBOSA IN PLACE, SAFETY PRECAUTIONS IN PLACE, CALL LIGHT WITHIN REACH, WILL MONITOR ACCORDINGLY.
[2018-07-03 07:51] LABS: CALCIUM, SERUM 8.9 mg/dL (8.5-10.1); CREATININE 0.7 mg/dL (0.6-1.3); MAGNESIUM 1.7 mg/dL (1.8-2.4); PHOSPHORUS 2.9 mg/dL (2.5-4.9); POTASSIUM 3.5 mmol/L (3.5-5.1)
[2018-07-03 08:00] VITALS: BP 114/78
[2018-07-03] MEDS: MEROPENEM 1 G in IV NS 0.9% 100 ML IV SCH (08:14)
[2018-07-03] MEDS: DOCUSATE SODIUM 100 MG CAPSULE PO SCH ×3 (08:16→17:00)
[2018-07-03] MEDS: ESCITALOPRAM OXALATE (10 MG) 10 MG TABLET PO SCH (08:17)
[2018-07-03] MEDS: GABAPENTIN 300 MG CAPSULE PO SCH (08:17)
[2018-07-03] MEDS: SENNOSIDES 8.6 MG TABLET PO SCH (08:17)
[2018-07-03] MEDS: MAGNESIUM OXIDE 400 MG TABLET PO SCH (08:17)
[2018-07-03] MEDS: FAMOTIDINE (20 MG) 20 MG TABLET PO SCH ×2 (08:17→17:00)
[2018-07-03] MEDS: PROSOURCE / PROSTAT (PYXIS) 30 ML UDC PO SCH ×2 (08:18→17:01)
[2018-07-03] MEDS: AMLODIPINE BESYLATE 5 MG TABLET PO SCH (08:18)
[2018-07-03] MEDS: CLOPIDOGREL BISULFATE 75 MG TABLET PO SCH (08:18)
[2018-07-03] MEDS: LISINOPRIL (20MG) 20 MG TABLET PO SCH (08:18)
[2018-07-03] MEDS ORDERED: INTERFERON BETA 30 MCG IM SCH (09:00)
[2018-07-03] MEDS ORDERED: MERO1PIG IV (11:32)
[2018-07-03] MEDS ORDERED: Magnesium 1GM/D5W 100ML PREMIX PIGGYBACK IV ONE (12:00)
--- NOTE | 2018-07-03 12:04 | NUR ---
RN NOTE RECEIVED ORDER FROM [facility]MA MAI TO REMOVE BARBOSA, KEEP PICC LINE IN PLACE, AND TO GIVE 2G OF IV MAG. WILL IMPLEMENT ORDER AND CARRY OUT
--- NOTE | 2018-07-03 12:08 | NUR ---
RN NOTE BARBOSA REMOVED AT THIS TIME, WILL MONITOR ACCORDINGLY
[2018-07-03] MEDS: Magnesium 1GM/D5W 100ML PREMIX 100 ML IV SCH ×2 (12:24→13:18)
--- NOTE | 2018-07-03 15:20 | NUR ---
RN NOTE REPORT GIVEN TO DELFINA AT [facility] AT THIS TIME
[2018-07-03 16:00] VITALS: BP 100/66
--- NOTE | 2018-07-03 18:39 | NUR ---
RN OPENING NOTE PT IN BED AT LOWEST AND LOCKED POSITION WITH SIDE RAILS UP X2, AWAKE AND ALERT DOES NOT TALK BUT NODS HEAD, BREATHING EVEN AND UNLABORED, NO S/S OF PAIN OR DISTRESS NOTED, PICC IS PATENT AND INTACT, SAFETY PRECAUTIONS IN PLACE, CALL LIGHT WITHIN REACH, WILL ENDORSE TO INTERVENTIONAL RADIOLOGY TECHNOLOGIST RN FOR FREEMAN. Addendum: 07/03/18 at 1840 by BRENNAN BOYLE RN RN CLOSING NOTE PT IN BED AT LOWEST AND LOCKED POSITION WITH SIDE RAILS UP X2, AWAKE AND ALERT DOES NOT TALK BUT NODS HEAD, BREATHING EVEN AND UNLABORED, NO S/S OF PAIN OR DISTRESS NOTED, PICC IS PATENT AND INTACT, SAFETY PRECAUTIONS IN PLACE, CALL LIGHT WITHIN REACH, WILL ENDORSE TO INTERVENTIONAL RADIOLOGY TECHNOLOGIST RN FOR FREEMAN.
--- NOTE | 2018-07-03 19:11 | NUR ---
DISCHARGE NOTE PT WAS D/C AT THIS TIME IN MEDICALLY STABLE CONDITION TO [facility] WHERE REPORT WAS GIVEN TO DELFINA. ALL D/C PAPERWORK, EXITCARE AND BELONGING LIST WAS SIGNED, DISCUSSED, AND HANDED TO PATIENT AND EMT CREW. WOUND PHOTOS WERE TAKEN AND DOCUMENTED AND PLACED IN THE CHART. ANTHONY PICC LINE WAS LEFT IN PLACE DUE TO PLAN FOR THE PATIENT TO RECEIVE 10 MORE DAYS OF MEROPENEM IV. ID BAND WAS REMOVED. ALL NEEDS WERE ATTENDED TO DURING HER STAY. WILL BE LEAVING AT THIS TIME WITH EMT CREW TO FACILITY.
== END 2018-07-03 20:00 | DRG 871 ==
LOC: ER 08:36 → TELE-TD 10:12 → ICU 12:37 → TELE1 06-30 10:35 → MEDSG1 07-01 09:03
PROVIDERS: ADMIT Family Medicine; ATTEND Nurse Practitioner Acute Care
PROC: 02HV33Z Insertion of Infusion Device into Superior Vena Cava, Percutaneous Approach (ICD-10-PCS; principal; 2018-06-27)
PROC: B548ZZA Ultrasonography of Superior Vena Cava, Guidance (ICD-10-PCS; 2018-06-27)
DX: A41.9 Sepsis, unspecified organism (principal); E43 Unspecified severe protein-calorie malnutrition; R65.21 Severe sepsis with septic shock; N17.0 Acute kidney failure with tubular necrosis; J15.9 Unspecified bacterial pneumonia; N39.0 Urinary tract infection, site not specified; E87.2 Acidosis; I69.351 Hemiplegia and hemiparesis following cerebral infarction affecting right dominant side; F32.9 Major depressive disorder, single episode, unspecified; B96.20 Unspecified Escherichia coli [E. coli] as the cause of diseases classified elsewhere; E78.5 Hyperlipidemia, unspecified; G89.4 Chronic pain syndrome; G35 Multiple sclerosis; F03.90 Unspecified dementia, unspecified severity, without behavioral disturbance, psychotic disturbance, mood disturbance, and anxiety; I27.21 Secondary pulmonary arterial hypertension; I69.320 Aphasia following cerebral infarction; M48.00 Spinal stenosis, site unspecified; Z16.12 Extended spectrum beta lactamase (ESBL) resistance; I10 Essential (primary) hypertension; K21.9 Gastro-esophageal reflux disease without esophagitis; D63.8 Anemia in other chronic diseases classified elsewhere; R73.9 Hyperglycemia, unspecified; E88.09 Other disorders of plasma-protein metabolism, not elsewhere classified; I95.9 Hypotension, unspecified; E66.01 Morbid (severe) obesity due to excess calories; Z68.32 Body mass index [BMI] 32.0-32.9, adult
CPT/HCPCS: 36415; 36569; 36600; 71045-TC; 71250-TC; 80048-TC; 80053-TC; 80061-TC; 80076-TC; 81000-TC; 82803-TC; 83605-TC; 83735-TC; 84100-TC; 84484-TC; 85025-TC; 85730-TC; 87040-TC; 87081-TC; 87086-TC; 87186-TC; A4216; C1751; G0378; J0692; J2185; J3370; J3475; J7030; J7040; J7060

== ENCOUNTER 2019-04-15 11:37 | Inpatient (IN) | payer MEDICARE, MEDICAID ==
[~2019-04-15] VITALS: Ht 170.2 cm; Wt 93.6 kg
[~2019-04-15 11:37] MED LIST: ACET-2605 PO; ACET-868 PO; AMIN30LI27 PO; AMLO5TAB4 PO; BACL10TA PO; BISA10SU11 RC; CLOP75TA15 PO; DOCU-141 PO; ESCI10TA PO; FAMO20TA8 PO; GABA-534 PO; INTE30SY IM; LISI40TA4 PO; MAGN400O6 PO; MAGN400T26 PO; MERO1PIG IV; NA P133E RC; NORT10CA PO; SENN-168 PO; SORB30SO2 PO
[2019-04-15] MEDS ORDERED: IV NS 0.9% 1,000 ML BAG IV ONE (12:00)
[2019-04-15] MEDS ORDERED: ACETAMINOPHEN 650 MG/SUPP.RECT RC ONE ×2 (12:00→12:12)
[2019-04-15] MEDS ORDERED: CEFEPIME 1 GM in IV D5W 50 ML IV ONE (12:00)
[2019-04-15] MEDS ORDERED: IBUPROFEN 600 MG TABLET PO ONE (12:00)
[2019-04-15] MEDS ORDERED: PENICILLIN G BENZATHINE 2.4 MMU/4 ML ML IM ONE (12:00)
[2019-04-15] MEDS ORDERED: FEXO-65 PO (12:14)
[2019-04-15] MEDS ORDERED: FERR325T23 PO (12:14)
[2019-04-15] MEDS ORDERED: HYDR-4384 PO (12:14)
[2019-04-15 12:15] LABS: BASOPHILS % (AUTO) 0.8 % (0.0-2.0); EOSINOPHILS % (AUTO) 3.1 % (0.0-6.0); HEMATOCRIT 33 % (33-45); HEMOGLOBIN 10.8 g/dL (11.5-14.8); LYMPHOCYTES # (AUTO) 1.2 /CMM (0.8-4.8); LYMPHOCYTES % (AUTO) 22.1 % (20.0-44.0); MEAN CORPUSCULAR HGB CONC 33 g/dl (31.0-36.0); MEAN CORPUSCULAR VOLUME 92 fL (82-100); MONOCYTES # (AUTO) 0.6 /CMM (0.1-1.30); MONOCYTES % (AUTO) 11.2 % (2.0-12.0); NEUTROPHILS # (AUTO) 3.4 /CMM (1.8-8.9); NEUTROPHILS % (AUTO) 62.8 % (43.0-81.0); PLATELET COUNT (AUTO) 490 /CMM (150-450); WHITE BLOOD COUNT (AUTO) 5.4 K/uL (4.3-11.0)
--- NOTE | 2019-04-15 12:15 | NUR ---
Called Pharmacy for Tomas
[2019-04-15 12:28] LABS: ALANINE AMINOTRANSFERASE 8 U/L (12-78); ALBUMIN 2.3 g/dL (3.4-5.0); ALKALINE PHOSPHATASE 76 U/L (46-116); ASPARTATE AMINOTRANSFERASE 13 U/L (15-37); BILIRUBIN,DIRECT 0.1 mg/dL (0.0-0.2); BILIRUBIN,TOTAL 0.2 mg/dL (0.2-1.0); CALCIUM, SERUM 10.5 mg/dL (8.5-10.1); CARBON DIOXIDE 17 mmol/L (21-32); CHLORIDE 109 mmol/L (98-107); CREATININE 4.2 mg/dL (0.6-1.3); GLUCOSE 124 mg/dL (74-106); LIPASE 196 U/L (73-393); POTASSIUM 5.8 mmol/L (3.5-5.1); SODIUM SERUM 137 mmol/L (136-145); TOTAL PROTEIN, SERUM 8.7 g/dL (6.4-8.2)
[2019-04-15 12:31] LABS: UREA NITROGEN, BLOOD 142 mg/dL (7-18)
--- NOTE | 2019-04-15 12:41 | NUR ---
Patient for indwelling cath observed sterile technique urine obtained and send to lab
[2019-04-15 12:49] LABS: APPEARANCE,URINE TURBID (CLEAR)
[2019-04-15 12:53] LABS: COLOR,URINE YELLOW (YELLOW)
[2019-04-15 12:54] LABS: BILIRUBIN,URINE NEGATIVE (NEGATIVE); BLOOD, URINE 3+ Ery/uL (NEGATIVE); KETONES,URINE NEGATIVE (NEGATIVE); LEUKOCYTE ESTERASE ,URINE 3+ (NEGATIVE); NITRITE, URINE 2+ (NEGATIVE); PROTEIN,URINE 3+ mg/dl (NEGATIVE); UGLUCOSE NEGATIVE (NEGATIVE); UROBILINOGEN,URINE 0.2 EU/dL (0.2)
[2019-04-15 12:56] LABS: BACTERIA,URINE 2+ /HPF (None Seen); RBC,URINE 21-50 /HPF (0-2); SQUAMOUS EPITHELIAL CELL,UR Moderate /HPF (None Seen); WBC,URINE 81-100 /HPF (0-3)
[2019-04-15] MEDS ORDERED: INSULIN REGULAR, HUMAN 100 UNIT/ML 10 ML VIAL IV ONE (13:00)
[2019-04-15] MEDS ORDERED: DEXTROSE 50%-WATER 50 ML DISP.SYRIN IVP ONE (13:00)
--- NOTE | 2019-04-15 13:04 | NUR ---
CALLED [facility], PAGED KULWANT
[2019-04-15] MEDS ORDERED: DEXTROSE 50%-WATER 50 ML DISP.SYRIN ONE (13:09)
[2019-04-15] MEDS ORDERED: INSULIN REGULAR, HUMAN 100 UNIT/ML 10 ML VIAL ONE (13:11)
--- NOTE | 2019-04-15 15:19 | NUR ---
Patient awake non verbal non distress vitals done ,her son aware of plan of care
--- NOTE | 2019-04-15 15:30 | NUR ---
RN NOTES RECEIVED PATIENT VIA GURNEY FROM ED. PT IS APHASIC, UNABLE TO ASSESS ALERTNESS OF PATIENT. EYES ARE OPEN AND TRACES, PATIENT APPEARS TO UNDERSTAND WHEN SPOKEN TOO. SHE IS ON 3L OF OXYGEN VIA NC, TOLERATING WELL. EYES ARE PERRLA. LUNG SOUNDS ARE DIMINISHED BILATERALLY. SKIN IS INTACT, NO WOUNDS PRESENT ON ADMISSION. BARBOSA CATH IS INTACT, DRAINING CLOUDY, STRAW COLORED URINE. VITAL SIGNS ARE WITHIN NORMAL LIMITS. IV SITE ON LEFT AC IS PATENT AND INTACT. DR. BLUM AWARE OF PT ARRIVAL, ADMITTING ORDERS HAVE BEEN RECEIVED, SAFETY MEASURES HAVE BEEN IMPLEMENTED, CALL LIGHT IS WITHIN REACH, BED IS IN LOWEST AND LOCKED POSITION, SIDE RAILS UP X2, WILL CONTINUE TO MONITOR FOR ANY CHANGES.
[2019-04-15 16:00] VITALS: BP 116/91
[2019-04-15] MEDS ORDERED: Z GUARD REMEDY 2 OZ OINT TP PRN (16:00)
[2019-04-15] MEDS ORDERED: ACETAMINOPHEN 325 MG TABLET PO PRN ×2 (16:00)
[2019-04-15] MEDS ORDERED: NA PHOS,M-B/NA PHOS,DI-BA 1 EA ENEMA RC PRN (16:00)
[2019-04-15] MEDS ORDERED: BISACODYL SUPP (10 MG) 10 MG/SUPP.RECT SUPP.RECT RC PRN (16:00)
[2019-04-15] MEDS ORDERED: MAGNESIUM HYDROXIDE 30 ML UDC PO PRN ×2 (16:00)
[2019-04-15] MEDS ORDERED: ONDANSETRON HCL/PF 4 MG/2 ML VIAL IVP PRN (16:00)
[2019-04-15] MEDS ORDERED: HYDROCODONE/APAP 5/325MG 1 EACH TABLET PO PRN (16:00)
[2019-04-15] MEDS ORDERED: MAG HYDROX/AL HYDROX/SIMETH 30 ML UDC PO PRN (16:00)
[2019-04-15] MEDS ORDERED: cetrizine 10 MG TABLET PO PRN (16:00)
[2019-04-15] MEDS: DOCUSATE SODIUM 100 MG CAPSULE PO SCH (17:33)
[2019-04-15] MEDS: IV NS 0.9% 1,000 ML IV SCH (17:33)
[2019-04-15] MEDS: CEFTRIAXONE 1 G in IV D5W 50 ML IV SCH (17:33)
[2019-04-15] MEDS: FAMOTIDINE (20 MG) 20 MG TABLET PO SCH (17:33)
[2019-04-15 19:01] VITALS: BP 116/91
--- NOTE | 2019-04-15 19:30 | NUR ---
RN NOTES, RECEIVED PATIENT IN BED ASLEEP BUT AROUSES TO TACTILE STIMULI, ON 3LPM VIA NC WITH OPTIMAL O2 SAT LEVEL, BREATHING EVEN NAD UNLABORED, NO S/S OF PAIN/ACUTE RESPIRATORY DISTRESS NOTED AT THIS TIME, NSR IN TELE MONITOR WIT PVC, F/C IN PLACED PATENT AND INTACT DRAINING FOUL DARK YELLOW URINE BY GRAVITY WITH SOME SEDIMENTS, LEFT AC IV ACCESS 20G WITH 0.9% NS INFUSING WELL AND PATIENT TOLERATED WELL, ALL NEEDS PROVIDED AND WELL REPOSITIONED AT THIS TIME, S/R OF BED UP, CALL LIGHT W/I REACH, BED LOCKED AND IN LOWEST POSITION , WILL CONTINUE TO MONITOR CLOSELY.
[2019-04-15 20:00] VITALS: BP 125/73
--- NOTE | 2019-04-15 20:10 | NUR ---
PT HAS BEEN ENDORSED TO NIGHTSHIFT RN FOR CONTINUITY OF CARE.
--- NOTE | 2019-04-15 20:10 | NUR ---
RN NOTES PATIENT IS RESTING COMFORTABLY IN BED AT THIS TIME, SHOWS NO S/SX OF RESP DISTRESS OR SOB. PT NEEDS HAVE BEEN MET, VITAL SIGNS ARE STABLE, NO ACUTE CHANGES OCCURRED THROUGHOUT THE SHIFT. SAFETY MEASURES HAVE BEEN IMPLEMENTED, CALL LIGHT IS WITHIN REACH, BED IS IN LOWEST AND LOCKED POSITION, SIDE RAILS UP X2, WILL CONTINUE TO MONITOR FOR ANY CHANGES.
[2019-04-15] MEDS: SENNOSIDES 8.6 MG TABLET PO SCH (21:32)
[2019-04-15] MEDS: GABAPENTIN 300 MG CAPSULE PO SCH (21:32)
[2019-04-15] MEDS: BACLOFEN (10 MG) 10 MG TABLET PO SCH (21:32)
[2019-04-15] MEDS: NORTRIPTYLINE HCL 10 MG CAPSULE PO SCH (21:33)
[2019-04-16] VITALS: BP 92/75
[2019-04-16 04:00] VITALS: BP 91/71
[2019-04-16] MEDS: IV NS 0.9% 1,000 ML IV SCH (07:28)
[2019-04-16 07:39] LABS: BASOPHILS % (AUTO) 0.4 % (0.0-2.0); EOSINOPHILS % (AUTO) 0.5 % (0.0-6.0); HEMATOCRIT 34 % (33-45); HEMOGLOBIN 10.6 g/dL (11.5-14.8); LYMPHOCYTES # (AUTO) 0.6 /CMM (0.8-4.8); LYMPHOCYTES % (AUTO) 5.2 % (20.0-44.0); MEAN CORPUSCULAR HGB CONC 32 g/dl (31.0-36.0); MEAN CORPUSCULAR VOLUME 92 fL (82-100); MONOCYTES # (AUTO) 0.6 /CMM (0.1-1.30); MONOCYTES % (AUTO) 5.6 % (2.0-12.0); NEUTROPHILS # (AUTO) 9.9 /CMM (1.8-8.9); NEUTROPHILS % (AUTO) 88.3 % (43.0-81.0); PLATELET COUNT (AUTO) 495 /CMM (150-450); RED BLOOD CELL COUNT(AUTO) 3.66 MIL/uL (4.0-5.2); WHITE BLOOD COUNT (AUTO) 11.2 K/uL (4.3-11.0)
[2019-04-16 07:58] LABS: CALCIUM, SERUM 9.6 mg/dL (8.5-10.1); CREATININE 2.9 mg/dL (0.6-1.3); MAGNESIUM 2.8 mg/dL (1.8-2.4); PHOSPHORUS 5.2 mg/dL (2.5-4.9); POTASSIUM 5.5 mmol/L (3.5-5.1)
[2019-04-16 08:00] VITALS: BP 100/90
[2019-04-16] MEDS: DOCUSATE SODIUM 100 MG CAPSULE PO SCH ×3 (08:25→17:06)
[2019-04-16] MEDS: ESCITALOPRAM OXALATE (10 MG) 10 MG TABLET PO SCH (08:25)
[2019-04-16] MEDS: MAGNESIUM OXIDE 400 MG TABLET PO SCH (08:26)
[2019-04-16] MEDS: GABAPENTIN 300 MG CAPSULE PO SCH ×2 (08:26→21:41)
[2019-04-16] MEDS: CLOPIDOGREL BISULFATE 75 MG TABLET PO SCH (08:26)
[2019-04-16] MEDS: SENNOSIDES 8.6 MG TABLET PO SCH ×2 (08:26→21:40)
[2019-04-16] MEDS: FAMOTIDINE (20 MG) 20 MG TABLET PO SCH ×2 (08:27→17:06)
[2019-04-16] MEDS: FERROUS SULFATE (325 MG) 325 MG/TAB TABLET PO SCH (08:28)
[2019-04-16] MEDS: LISINOPRIL (10MG) 10 MG TABLET PO SCH (08:31)
--- NOTE | 2019-04-16 12:15 | NUR ---
RN NOTES, PATIENT ENDORSED TO MACK WRIGHT FOR CONTINUATION OF CARE.
[2019-04-16] MEDS ORDERED: INTERFERON BETA 30 MCG IM SCH (13:00)
--- NOTE | 2019-04-16 13:30 | NUR ---
Tele/RN - Notes Received patient from MACK Sun, alert to self, left wrist restraint in place to prevent pulling out lines, IVF infusing well on the LAC with no signs of infiltration, son at bedside updated on plan of care. Will continue to monitor closely.
[2019-04-16] MEDS ORDERED: IV NS 0.9% 1,000 ML IV PRN (17:00)
[2019-04-16] MEDS ORDERED: SODIUM POLYSTYRENE SULFONATE 15 G/60 ML BOTTLE PO ONE (17:00)
[2019-04-16] MEDS: CEFTRIAXONE 1 G in IV D5W 50 ML IV SCH (17:08)
--- NOTE | 2019-04-16 17:56 | NUR ---
Patient has hx of CVA with aphasia and right-sided hemiparesis, she resides at [facility] [phone] with bedhold x7days. She is bed and chair bound, requires max assist with adl's. Current dc plan is to return to SNF Addendum: 04/16/19 at 1757 by GENEVIEVE BUTLER RN Amended: Links added.
--- NOTE | 2019-04-16 18:47 | NUR ---
Tele/RN - End of shift summary No significant change in condition seen. Will endorse to night RN for continuity of care.
--- NOTE | 2019-04-16 19:20 | NUR ---
RN OPEN NOTES RECEIVED PATIENT RESTING COMFORTABLY IN BED. A/OX1. NON-VERBAL. NO SIGNS OF DISTRESS OR DISCOMFORT. BREATHING EVEN AND UNLABORED. ON 3LPM O2 VIA NC. ON TELE MONITORING WITH SR 72 NOTED. IV ACCESS IN LAC WITH NS INFUSING, PATENT AND INTACT, NO SIGNS OF REDNESS OR INFILTRATION. ON L WRIST RESTRAINT WITH NO SKIN BREAKDOWN OR SKIN ISSUES NOTED. HAS F/C INTACT, DRAINING CLEAR YELLOW FLUID. BED IN LOW LOCKED POSITION WITH SIDE RAILS X2. CALL LIGHT WITHIN REACH. WILL CONTINUE TO MONITOR.
[2019-04-16 20:00] VITALS: BP 98/53
[2019-04-16] MEDS: NORTRIPTYLINE HCL 10 MG CAPSULE PO SCH (21:40)
[2019-04-16] MEDS: BACLOFEN (10 MG) 10 MG TABLET PO SCH (21:41)
[2019-04-17] VITALS: BP 98/59
--- NOTE | 2019-04-17 06:34 | NUR ---
RN CLOSING NOTES PATIENT RESTING COMFORTABLY IN BED, EASILY AROUSABLE. A/OX1. NON-VERBAL. NO SIGNS OF DISTRESS OR DISCOMFORT. BREATHING EVEN AND UNLABORED. ON 3LPM O2 VIA NC. ON TELE MONITORING WITH SR 71 NOTED. IV ACCESS IN LAC WITH NS INFUSING, PATENT AND INTACT, NO SIGNS OF REDNESS OR INFILTRATION. ON L WRIST RESTRAINT WITH NO SKIN BREAKDOWN OR SKIN ISSUES NOTED. HAS F/C INTACT, DRAINING CLEAR YELLOW FLUID. ALL NEEDS MET. KEPT CLEAN DRY AND COMFORTABLE. NO SIGNIFICANT CHANGES THROUGH THE NIGHT.REPOSITIONED Q2H. BED IN LOW LOCKED POSITION WITH SIDE RAILS X2. CALL LIGHT WITHIN REACH. WILL ENDORSE TO AM SHIFT FOR FREEMAN.
[2019-04-17 06:43] LABS: BASOPHILS % (AUTO) 0.5 % (0.0-2.0); EOSINOPHILS % (AUTO) 2.1 % (0.0-6.0); HEMATOCRIT 33 % (33-45); HEMOGLOBIN 10.4 g/dL (11.5-14.8); LYMPHOCYTES % (AUTO) 12.6 % (20.0-44.0); MEAN CORPUSCULAR HGB CONC 32 g/dl (31.0-36.0); MEAN CORPUSCULAR VOLUME 94 fL (82-100); MONOCYTES # (AUTO) 1.1 /CMM (0.1-1.30); MONOCYTES % (AUTO) 14.4 % (2.0-12.0); NEUTROPHILS # (AUTO) 5.3 /CMM (1.8-8.9); NEUTROPHILS % (AUTO) 70.4 % (43.0-81.0); PLATELET COUNT (AUTO) 421 /CMM (150-450); RED BLOOD CELL COUNT(AUTO) 3.48 MIL/uL (4.0-5.2); WHITE BLOOD COUNT (AUTO) 7.6 K/uL (4.3-11.0)
[2019-04-17 06:47] LABS: CALCIUM, SERUM 9.8 mg/dL (8.5-10.1); CREATININE 2.5 mg/dL (0.6-1.3); MAGNESIUM 2.8 mg/dL (1.8-2.4); PHOSPHORUS 4.5 mg/dL (2.5-4.9)
[2019-04-17 08:00] VITALS: BP 101/58
--- NOTE | 2019-04-17 09:00 | NUR ---
Left hand soft restrain removed . No attempts to remove F/C. Will continue to monitor
[2019-04-17] MEDS: CLOPIDOGREL BISULFATE 75 MG TABLET PO SCH (09:48)
[2019-04-17] MEDS: GABAPENTIN 300 MG CAPSULE PO SCH ×2 (09:48→21:11)
[2019-04-17] MEDS: MAGNESIUM OXIDE 400 MG TABLET PO SCH (09:49)
[2019-04-17] MEDS: SENNOSIDES 8.6 MG TABLET PO SCH ×2 (09:49→21:11)
[2019-04-17] MEDS: LISINOPRIL (10MG) 10 MG TABLET PO SCH (09:49)
[2019-04-17] MEDS: DOCUSATE SODIUM 100 MG CAPSULE PO SCH ×3 (09:49→17:20)
[2019-04-17] MEDS: ESCITALOPRAM OXALATE (10 MG) 10 MG TABLET PO SCH (09:49)
[2019-04-17] MEDS: FAMOTIDINE (20 MG) 20 MG TABLET PO SCH ×2 (09:49→17:20)
[2019-04-17] MEDS: FERROUS SULFATE (325 MG) 325 MG/TAB TABLET PO SCH (09:51)
[2019-04-17] MEDS: SORBITOL SOLUTION 30 ML PO SCH (09:51)
--- NOTE | 2019-04-17 10:30 | NUR ---
Patient did not pass swallow evaluation. Diet changed to puree and liquid has to given with thickener
--- NOTE | 2019-04-17 11:50 | NUR ---
WOUND CARE CONSULT: PT PRESENTS IMMOBILE WITH CURRENT LILI SCORE OF 12. FIRST STEP LOW AIRLOSS MATTRESS ON ORDER. RECOMMENDATIONS MADE FOR SKIN PROTECTION AND DISCUSSED WITH NURSING STAFF. WILL SEE PRN. MEYERS IN AGREEMENT WITH PLAN OF CARE.
[2019-04-17 12:00] VITALS: BP 113/76
[2019-04-17] MEDS: IV 1/2NS 1000 ML 1,000 ML IV PRN (15:29)
[2019-04-17 16:00] VITALS: BP 103/63
[2019-04-17] MEDS: CEFTRIAXONE 1 G in IV D5W 50 ML IV SCH (17:21)
--- NOTE | 2019-04-17 18:32 | NUR ---
Patient in bed , remains stable on 3l via nasal canula. All needs attended. Patient repositioned Q2hr. Patient non-verbal. Patient noted with leaking IV line. Attempted to put another line with no success. Will endorse to next shift . Safety precautions in place , call light within place.
--- NOTE | 2019-04-17 19:11 | NUR ---
RN NOTES: RECEIVED AWAKE ON BED, NON VERBAL,SHE LOOK AT YOU WHEN YOU CALL HER NAME, AWAKE,NOT LOOKING DROWSY, ON TELE MONITOR -SR-92, ON O2 AT 3L/MIN VIA NC SPO2-94%,NO LABORED BREATHING NOTED, CALM. ON BARBOSA CATH DRAINING INTO DARK YELLOWISH COLORED URINE, LITTLE SEDIMENTS NOTED AT 50 CC LEVEL, IVF NOT YET RESUMED PER ENDORSEMENT HER IV CANNULA IN LAC G#20 IS LEAKING, NOTED WITH REDNESS, WILL RESITE LATER, ORIENTED TO UNIT AND STAFF, BED LOW AND LOCKED, CALL LIGHT WITHIN EASY REACH, FALL,SAFETY AND ASPIRATION PRECAUTION OBSERVED. Addendum: 04/18/19 at 0138 by NICKI WALLER RN ADDED NOTES: SHE IS ON LEFT HAND SOFT RESTRAINT, TEMPORARILY REMOVE, SHE IS NOT TRYING TO PULL OUT HER IV CANNULA.
[2019-04-17 20:00] VITALS: BP 122/75
--- NOTE | 2019-04-17 20:19 | NUR ---
RN NOTES: UPON ENDORSEMENT NOTED IV CANNULA SITE IN THE LAC INFILTRATED, THERE IS REDNESS AND LEAKING, EXPLAINED TO PATIENT NEED TO REINSERT, TRIED 2X, ABLE TO INSERT IN THE LEFT HAND G#22, IVF OF OF 0.45% NS AT 100CC/HR RESUMED. PATENT.
[2019-04-17] MEDS: NORTRIPTYLINE HCL 10 MG CAPSULE PO SCH (21:11)
[2019-04-17] MEDS: BACLOFEN (10 MG) 10 MG TABLET PO SCH (21:11)
[2019-04-18] VITALS (7 sets, daily range): BP systolic 96–143; BP diastolic 68–80
--- NOTE | 2019-04-18 01:38 | NUR ---
RN NOTES: RESTRAIN REMOVE WHILE PATIENT IS ASLEEP, SHE IS NOT PULLING OUT HER IV. SLEEPING COMFORTABLY NO SOB OR ANY SIGN OF PAIN OR DISCOMFORT.
[2019-04-18] MEDS: IV 1/2NS 1000 ML 1,000 ML IV PRN ×3 (02:28→23:04)
--- NOTE | 2019-04-18 02:29 | NUR ---
RN NOTES: IVF CONSUMED NEW BAG STARTED AT 228.IVF 0.45% NS AT 75 ML/HR. Addendum: 04/18/19 at 0233 by NICKI WALLER RN CORRECTION OF IV RATE NOT 75 ML/HR: IVF I/1 NS REGULATED AT AT 100 ML/HR.
--- NOTE | 2019-04-18 07:32 | NUR ---
RN NOTES: SLEEP WELL IN THE NIGHT, NO PAIN OR DISCOMFORT, NEEDS ATTENDED, ENDORSED FOR CONTINUITY OF CARE, LEFT HAND SOFT RESTRAINTS REMOVE THE ENTIRE TIME SHE IS ASLEEP.
[2019-04-18] MEDS: FERROUS SULFATE (325 MG) 325 MG/TAB TABLET PO SCH (07:44)
[2019-04-18] MEDS: MAGNESIUM OXIDE 400 MG TABLET PO SCH (08:21)
[2019-04-18] MEDS: DOCUSATE SODIUM 100 MG CAPSULE PO SCH ×3 (08:21→16:19)
[2019-04-18] MEDS: LISINOPRIL (10MG) 10 MG TABLET PO SCH (08:21)
[2019-04-18] MEDS: FAMOTIDINE (20 MG) 20 MG TABLET PO SCH ×2 (08:21→16:19)
[2019-04-18] MEDS: SENNOSIDES 8.6 MG TABLET PO SCH ×2 (08:21→21:27)
[2019-04-18] MEDS: CLOPIDOGREL BISULFATE 75 MG TABLET PO SCH (08:21)
[2019-04-18] MEDS: ESCITALOPRAM OXALATE (10 MG) 10 MG TABLET PO SCH (08:21)
[2019-04-18] MEDS: GABAPENTIN 300 MG CAPSULE PO SCH ×2 (08:21→21:27)
[2019-04-18 12:44] LABS: BASOPHILS % (AUTO) 0.7 % (0.0-2.0); EOSINOPHILS % (AUTO) 3.7 % (0.0-6.0); HEMATOCRIT 32 % (33-45); HEMOGLOBIN 10.4 g/dL (11.5-14.8); LYMPHOCYTES # (AUTO) 0.9 /CMM (0.8-4.8); LYMPHOCYTES % (AUTO) 15.4 % (20.0-44.0); MEAN CORPUSCULAR HGB CONC 33 g/dl (31.0-36.0); MEAN CORPUSCULAR VOLUME 92 fL (82-100); MONOCYTES # (AUTO) 0.6 /CMM (0.1-1.30); MONOCYTES % (AUTO) 9.6 % (2.0-12.0); NEUTROPHILS # (AUTO) 4.3 /CMM (1.8-8.9); NEUTROPHILS % (AUTO) 70.6 % (43.0-81.0); PLATELET COUNT (AUTO) 433 /CMM (150-450); RED BLOOD CELL COUNT(AUTO) 3.45 MIL/uL (4.0-5.2); WHITE BLOOD COUNT (AUTO) 6.1 K/uL (4.3-11.0)
[2019-04-18 13:04] LABS: CALCIUM, SERUM 10.5 mg/dL (8.5-10.1); CREATININE 1.9 mg/dL (0.6-1.3); MAGNESIUM 2.3 mg/dL (1.8-2.4); PHOSPHORUS 3.2 mg/dL (2.5-4.9); POTASSIUM 4.7 mmol/L (3.5-5.1)
[2019-04-18] MEDS ORDERED: MEROPENEM 1 G in IV NS 0.9% 100 ML IV ONE (15:00)
--- NOTE | 2019-04-18 18:22 | NUR ---
TELE/RN OPENING NOTES RECEIVED PATIENT IN BED AWAKE AND ABLE TO RESPOND TO VERBAL AND TACTILE STIMULI. NO PAIN OR ACUTE DISTRESS AT THIS TIME. RESPIRATION EVEN AND UNLABORED. SKIN IS DRY WARM TO TOUCH. IV ACCESS INTACT AND PATENT FLUSHING WELL. NO S/S OF INFECTION OR INFILTRATION. ALL NEEDS ANTICIPATED. CALL LIGHT WITHIN REACHED. BED LOCKED AND IN LOWEST POSITION. SAFETY MAINTAINED. WILL CONTINUE TO MONITOR CLOSELY.
--- NOTE | 2019-04-18 18:38 | NUR ---
TELE/RN CLOSING NOTES PATIENT CONTINUES TO REMAIN IN STABLE CONDITION THROUGHOUT THE SHIFT. PROVIDED COMFORT AND SAFETY. NO PAIN OR ACUTE DISTRESS AT THIS TIME. IV ACCESS INTACT AND PATENT. FLUSHING WELL. NO S/S INFECTION. HOB ELEVATED AT ALL TIMES. BARBOSA CATH INTACT AND PATENT. ALL NEEDS ANTICIPATED. CALL LIGHT WITHIN REACHED. BED LOCKED AND IN LOWEST POSITION. SAFETY MAINTAINED. WILL CONTINUE TO MONITOR CLOSELY. ENDORSED TO PM NURSE FOR FREEMAN.
--- NOTE | 2019-04-18 19:00 | NUR ---
clerk secretary opening notes Received Pt from morning nurse. Pt is resting in bed comfortably and able to respond to verbal and tactile stimuli. Respiration is normal in 3 L NC. No SOB. No S/S of distress noted. Tele monitor showed SR HR at 100. Peripheral IV is clean, intact, patent and flush without resistance. Turning and repositioning Q 2Hr. HOB elevated. Randall is intact, patent and draining cloudy yellow urine. Safety precautions is maintained. Bed at low position, brakes locked, side rails upX3 and call light is within reach. Will continue to monitor.
[2019-04-18] MEDS: BACLOFEN (10 MG) 10 MG TABLET PO SCH (21:27)
[2019-04-18] MEDS: NORTRIPTYLINE HCL 10 MG CAPSULE PO SCH (21:27)
[2019-04-18] MEDS: MEROPENEM 1 G in IV NS 0.9% 100 ML IV SCH (23:06)
[2019-04-19] VITALS (10 sets, daily range): BP systolic 90–123; BP diastolic 60–84
[2019-04-19 06:37] LABS: BASOPHILS % (AUTO) 0.7 % (0.0-2.0); EOSINOPHILS % (AUTO) 3.8 % (0.0-6.0); HEMATOCRIT 32 % (33-45); HEMOGLOBIN 10.6 g/dL (11.5-14.8); LYMPHOCYTES # (AUTO) 1.2 /CMM (0.8-4.8); LYMPHOCYTES % (AUTO) 19.8 % (20.0-44.0); MEAN CORPUSCULAR HGB CONC 33 g/dl (31.0-36.0); MEAN CORPUSCULAR VOLUME 92 fL (82-100); MONOCYTES # (AUTO) 0.7 /CMM (0.1-1.30); MONOCYTES % (AUTO) 10.6 % (2.0-12.0); NEUTROPHILS # (AUTO) 4.1 /CMM (1.8-8.9); NEUTROPHILS % (AUTO) 65.1 % (43.0-81.0); PLATELET COUNT (AUTO) 431 /CMM (150-450); RED BLOOD CELL COUNT(AUTO) 3.53 MIL/uL (4.0-5.2); WHITE BLOOD COUNT (AUTO) 6.3 K/uL (4.3-11.0)
--- NOTE | 2019-04-19 06:40 | NUR ---
soil chemist closing notes Pt is resting in bed comfortably. Respiration is normal. No SOB. No S/S of distress. IV sites at L hand# 22 is clean, intact, patent and infuising well Ns 0.45% @ 100 ml/hr. Tele monitor showed SR HR at 67. Routine meds were given as ordered. Randall cath is intact and patent. Kept Pt clean, dry and comfortable. Turned and repositioned Q 2 hr. HOB elevated. All needs met and attended. Safety precautions is maintained. Bed at low positioned, brakes locked, side rails upX3 and call light is within reach. Will endorse to morning nurse for FREEMAN.
[2019-04-19 06:47] LABS: CALCIUM, SERUM 10.4 mg/dL (8.5-10.1); CREATININE 1.6 mg/dL (0.6-1.3); PHOSPHORUS 2.6 mg/dL (2.5-4.9)
[2019-04-19] MEDS: DOCUSATE SODIUM 100 MG CAPSULE PO SCH ×3 (09:01→16:57)
[2019-04-19] MEDS: ESCITALOPRAM OXALATE (10 MG) 10 MG TABLET PO SCH (09:01)
[2019-04-19] MEDS: CLOPIDOGREL BISULFATE 75 MG TABLET PO SCH (09:01)
[2019-04-19] MEDS: GABAPENTIN 300 MG CAPSULE PO SCH ×2 (09:01→21:05)
[2019-04-19] MEDS: MEROPENEM 1 G in IV NS 0.9% 100 ML IV SCH ×3 (09:01→23:24)
[2019-04-19] MEDS: FAMOTIDINE (20 MG) 20 MG TABLET PO SCH ×2 (09:01→16:57)
[2019-04-19] MEDS: SENNOSIDES 8.6 MG TABLET PO SCH ×2 (09:02→21:05)
[2019-04-19] MEDS: LISINOPRIL (10MG) 10 MG TABLET PO SCH (09:02)
[2019-04-19] MEDS: MAGNESIUM OXIDE 400 MG TABLET PO SCH (09:02)
[2019-04-19] MEDS: FERROUS SULFATE (325 MG) 325 MG/TAB TABLET PO SCH (09:02)
[2019-04-19] MEDS: IV D5W 1,000 ML IV SCH ×2 (09:03→16:57)
--- NOTE | 2019-04-19 10:36 | NUR ---
alert, non-verbal, flat affect. total care, feeder. No sign, nor symtoms of respiratory, nor pain IVF changed to D5w at 100cc per hour. appetite for breakfast 100% no need for restraints
--- NOTE | 2019-04-19 19:15 | NUR ---
RN OPENING NOTE RECEIVED PATIENT IN BED RESTING WITH HOB ELEVATED. WATCHING TV. NON VERBAL. BREATHING EVEN AND NON LABORED, NO SOB NOTED. ON O2 2 LPM VIA NC. IN NO APPARENT DISTRESS NOTED AT THIS TIME. BED IS LOWERED AND LOCKED FOR SAFETY. CALL LIGHT IS WITHIN REACH. WILL CONTINUE TO MONITOR
[2019-04-19] MEDS: NORTRIPTYLINE HCL 10 MG CAPSULE PO SCH (21:05)
[2019-04-19] MEDS: BACLOFEN (10 MG) 10 MG TABLET PO SCH (21:05)
[2019-04-20 01:00] VITALS: BP 108/83
[2019-04-20] MEDS: IV D5W 1,000 ML IV SCH ×2 (04:07→14:39)
[2019-04-20 05:00] VITALS: BP 126/81
--- NOTE | 2019-04-20 07:00 | NUR ---
RN CLOSING NOTE PATIENT IS IN BED RESTING WITH HOB ELEVATED. BREATHING IS EVEN AND NON LABORED. NO SOB NOTED AT THIS TIME. NON VERBAL. IN NO APPARENT DISTRESS NOTED. DUE MEDS GIVEN AND TOLERATED WELL. PATIENT IS KEPT CLEAN, DRY, AND COMFORTABLE. CALL LIGHT IS WITHIN REACH. BED IS LOWERED TO LOWEST POSITION AND LOCKED FOR SAFETY. WILL ENDORSE TO AM SHIFT RN.
--- NOTE | 2019-04-20 08:00 | NUR ---
[facility] OPENING NOTES Received Patient asleep and resting in bed. A/O x 1. VS stable with no acute distress. Breathing even and unlabored on 2LPM via NC with no respiratory distress. No signs and symptoms of pain. Telemonitor in place and patent reading SV with PAC and HR-58. Randall Cath in place and patent with clear, yellow output noted. 22g PIV on Left Hand clean, intact, patent and flushing well with D5W infusing at 100ml/hr. Safety precautions in place. Bed locked and set to lowest position with side rails x 2 up. All needs rendered at this time. Call light within reach. Will continue to monitor.
[2019-04-20 08:01] LABS: BASOPHILS # (AUTO) 0.1 /CMM (0.0-0.2); BASOPHILS % (AUTO) 0.9 % (0.0-2.0); EOSINOPHILS % (AUTO) 3.1 % (0.0-6.0); HEMATOCRIT 33 % (33-45); HEMOGLOBIN 10.7 g/dL (11.5-14.8); LYMPHOCYTES # (AUTO) 1.7 /CMM (0.8-4.8); LYMPHOCYTES % (AUTO) 20.5 % (20.0-44.0); MEAN CORPUSCULAR HGB CONC 33 g/dl (31.0-36.0); MEAN CORPUSCULAR VOLUME 91 fL (82-100); MONOCYTES % (AUTO) 12.7 % (2.0-12.0); NEUTROPHILS # (AUTO) 5.1 /CMM (1.8-8.9); NEUTROPHILS % (AUTO) 62.8 % (43.0-81.0); PLATELET COUNT (AUTO) 420 /CMM (150-450); RED BLOOD CELL COUNT(AUTO) 3.58 MIL/uL (4.0-5.2); WHITE BLOOD COUNT (AUTO) 8.2 K/uL (4.3-11.0)
[2019-04-20 08:21] LABS: CREATININE 1.4 mg/dL (0.6-1.3); MAGNESIUM 1.7 mg/dL (1.8-2.4); POTASSIUM 4.7 mmol/L (3.5-5.1)
[2019-04-20 09:00] VITALS: BP 92/68
[2019-04-20] MEDS: GABAPENTIN 300 MG CAPSULE PO SCH (09:20)
[2019-04-20] MEDS: DOCUSATE SODIUM 100 MG CAPSULE PO SCH ×3 (09:20→18:28)
[2019-04-20] MEDS: FERROUS SULFATE (325 MG) 325 MG/TAB TABLET PO SCH (09:20)
[2019-04-20] MEDS: MAGNESIUM OXIDE 400 MG TABLET PO SCH (09:20)
[2019-04-20] MEDS: FAMOTIDINE (20 MG) 20 MG TABLET PO SCH ×2 (09:20→18:28)
[2019-04-20] MEDS: ESCITALOPRAM OXALATE (10 MG) 10 MG TABLET PO SCH (09:20)
[2019-04-20] MEDS: SENNOSIDES 8.6 MG TABLET PO SCH (09:21)
[2019-04-20] MEDS: LISINOPRIL (10MG) 10 MG TABLET PO SCH (09:21)
[2019-04-20] MEDS: SORBITOL SOLUTION 30 ML PO SCH (09:21)
[2019-04-20] MEDS: CLOPIDOGREL BISULFATE 75 MG TABLET PO SCH (09:21)
[2019-04-20] MEDS: MEROPENEM 1 G in IV NS 0.9% 100 ML IV SCH ×2 (10:59→18:29)
[2019-04-20] MEDS ORDERED: K PHOS NEUTRAL 250 MG TABLET PO ONE (11:00)
[2019-04-20] MEDS: Magnesium 1GM/D5W 100ML PREMIX 100 ML IV SCH ×2 (11:08→12:12)
[2019-04-20] MEDS ORDERED: MERO500V21 IV (13:03)
[2019-04-20 17:00] VITALS: BP 105/72
--- NOTE | 2019-04-20 19:44 | NUR ---
RN CLOSING NOTES Patient asleep and resting in bed. A/O x 1. VS stable with no acute distress. Breathing even and unlabored on 2LPM via NC with no respiratory distress. No signs and symptoms of pain. Randall Cath in place and patent with clear, yellow output noted. Removed intact PIV. Patient tolerated well. Medication reconciliation and discharge orders reviewed and explained to Patient. Patient unable to comprehend. All belongings with Patient. Patient will follow up with PCP. Safety precautions in place. Bed locked and set to lowest position with side rails x 2 up. All needs rendered at this time. Call light within reach. Report given to Nicole GIRON. Will endorse discharge plan to oncoming shift.
--- NOTE | 2019-04-20 19:45 | NUR ---
GAVE REPORT TO [facility] FROM [facility]. ALL DISCHARGE PAPERWORK GIVEN. REPORT CALLED BY ZHANE GIRON.
--- NOTE | 2019-04-20 20:04 | NUR ---
LEFT UNIT VIA GURNEY IN STABLE CONDITION
== END 2019-04-20 20:47 | DRG 682 ==
LOC: ER 11:38 → TELE1 15:10
PROVIDERS: ADMIT Internal Medicine; ATTEND Internal Medicine
DX: N17.0 Acute kidney failure with tubular necrosis (principal); E43 Unspecified severe protein-calorie malnutrition; G92 Toxic encephalopathy; N39.0 Urinary tract infection, site not specified; I69.351 Hemiplegia and hemiparesis following cerebral infarction affecting right dominant side; E87.0 Hyperosmolality and hypernatremia; Z16.12 Extended spectrum beta lactamase (ESBL) resistance; G35 Multiple sclerosis; E87.5 Hyperkalemia; E83.39 Other disorders of phosphorus metabolism; E83.41 Hypermagnesemia; I10 Essential (primary) hypertension; B96.20 Unspecified Escherichia coli [E. coli] as the cause of diseases classified elsewhere; E86.1 Hypovolemia; F32.9 Major depressive disorder, single episode, unspecified; F03.90 Unspecified dementia, unspecified severity, without behavioral disturbance, psychotic disturbance, mood disturbance, and anxiety; Z87.440 Personal history of urinary (tract) infections; D64.9 Anemia, unspecified; I69.320 Aphasia following cerebral infarction; G62.9 Polyneuropathy, unspecified; E88.09 Other disorders of plasma-protein metabolism, not elsewhere classified; M48.00 Spinal stenosis, site unspecified; Z68.32 Body mass index [BMI] 32.0-32.9, adult; E86.0 Dehydration
CPT/HCPCS: 36415; 71045-TC; 80048-TC; 80076-TC; 81000-TC; 83605-TC; 83690-TC; 83735-TC; 84100-TC; 84484-TC; 85025-TC; 85730-TC; 87040-TC; 87081-TC; 87086-TC; 87186-TC; 92611-TC; 94799-TC; G0378; J0692; J0696; J1815; J2185; J3475; J3490; J7030; J7040; J7060; J7070